=== PATIENT | male | born 1935 | race Caucasian/White ===

== ENCOUNTER 2018-01-05 12:29 | Inpatient (IN) | payer OTHER ==
[~2018-01-05] VITALS: Ht 175.3 cm; Wt 77.1 kg
[~2018-01-05 12:29] MED LIST: Levaquin PO; Norvasc PO; PriLOSEC PO; Tylenol/Codeine #3 PO; Vasotec PO
[2018-01-05 15:32] LABS: BASOPHIL (%) 0.5 % (0-1); EOSINOPHIL (%) 0.6 % (0-5); EOSINOPHIL COUNT 0.1 K/uL (0-0.3); HEMATOCRIT 26.3 % (38.0-50.0); IMMATURE GRANULOCYTE (%) 1.4 % (0.0-0.7); LYMPHOCYTE (%) 19.4 % (15-42); LYMPHOCYTE COUNT 1.6 K/uL (1.0-2.8); MCH 31.4 PG (29.0-34.0); MCHC 34.2 G/DL (30.0-36.0); MCV 91.6 FL (86-99); MONOCYTE (%) 10.5 % (3-12); MONOCYTE COUNT 0.8 K/uL (0-0.8); NEUTROPHIL (%) 67.6 % (45-76); NEUTROPHIL COUNT 5.4 K/uL (1.8-6.4); PLATELET COUNT 313 K/uL (156-360); RBC DIS.WIDTH-CV 13.6 % (11.8-14.6); RBC DIS.WIDTH-SD 45.9 % (39-53); RED BLOOD COUNT 2.87 M/uL (4.00-5.50)
[2018-01-05 15:37] LABS: INTER. NORMALIZED RATIO 1.1
[2018-01-05 15:40] LABS: CHLORIDE 101 mEq/L (99-109); POTASSIUM 3.9 mEq/L (3.7-5.4); PTT 27.4 SEC (25-37); SODIUM 129 mEq/L (136-147)
[2018-01-05 15:43] LABS: GLUCOSE 161 mg/dL (70-99); TOTAL PROTEIN 8.1 g/dL (6.4-8.3)
[2018-01-05 15:45] LABS: TOTAL BILIRUBIN 0.2 mg/dL (0.0-1.0)
[2018-01-05 15:46] LABS: ALKALINE PHOSPHATASE 110 IU/L (3-129); CREATININE 6.8 mg/dL (0.6-1.3); GFR ESTIMATE (CALCULATED) 8 mL/min/ (58.99-99999)
[2018-01-05 15:47] LABS: UREA NITROGEN (BUN) 90 mg/dL (9-23)
[2018-01-05 15:48] LABS: AST (GOT) 24 IU/L (2-34)
[2018-01-05 15:49] LABS: ALT (GPT) 21 IU/L (3-49)
[2018-01-05 15:52] LABS: TROP-I INTERPRETATION NEGATIVE; TROPONIN-I < 0.01 ng/mL (0.0-0.30)
[2018-01-05 16:30] LABS: APPEARANCE TURBID ((CLEAR)); BILIRUBIN NEGATIVE; BLOOD MODERATE; COLOR YELLOW ((YELLOW)); GLUCOSE (STRIP) NEGATIVE; KETONES NEGATIVE; LEUKOCYTES LARGE; NITRITE NEGATIVE; PROTEIN (STRIP) 100; SPECIFIC GRAVITY 1.011 (1.000-1.030); UROBILINOGEN 0.2 MG/DL (0.2-1.0)
[2018-01-05] MEDS ORDERED: AMLODIPINE BES2.5 MG PO (16:51)
[2018-01-05] MEDS ORDERED: OMEPRAZOLE20 MG PO (16:51)
[2018-01-05 17:04] LABS: BACTERIA 3+ /HPF; EPITHELIAL CELLS 1+ /HPF; RED BLOOD CELLS NONE SEEN /HPF (0-5); UCUL ADDED? YES; WHITE BLOOD CELLS TNTC /HPF (0-5)
[2018-01-05 20:00] LABS: COMMENTS - BLOOD GASES C+; DEVICE RA; PCO2 22 mm Hg (35-45); PO2 86 mm Hg (80-100); SITE RR; pH 7.31 (7.35-7.45)
[2018-01-05 20:01] LABS: BASE EXCESS -13.6 mEq/L (-3 to +3); BICARBONATE 11.1 mEq/L (22-26); METHEMOGLOBIN 0.5 % (0-1.5); O2 SATURATION (CALCULATED) 98.1 % (95-99)
[2018-01-05 20:16] LABS: URIC ACID 9.7 mg/dL (3.1-9.2)
[2018-01-05 20:17] LABS: CREATINE KINASE 42 IU/L (1-294)
[2018-01-05 22:08] VITALS: BP 123/62
[2018-01-05 22:38] LABS: C-REACTIVE PROTEIN 95.8 MG/L (0-10); IRON 18 MCG/DL (35-150); TRANSFERRIN (TIBC) 135.3 mg/dL (215-380); TRANSFERRIN SATUR. 13 % (20-55)
[2018-01-05 22:49] LABS: THYROTROPIN (TSH) 2.6 MIU/L (0.4-5.5)
[2018-01-05 22:55] LABS: FERRITIN 677 NG/ML (22-322)
[2018-01-06 00:05] VITALS: BP 120/65
[2018-01-06 00:27] LABS: CHLORIDE 103 mEq/L (99-109); POTASSIUM 3.9 mEq/L (3.7-5.4); SODIUM 130 mEq/L (136-147)
[2018-01-06 00:28] LABS: GLUCOSE 168 mg/dL (70-99)
[2018-01-06 00:32] LABS: CREATININE 6.5 mg/dL (0.6-1.3); GFR ESTIMATE (CALCULATED) 9 mL/min/ (58.99-99999)
[2018-01-06 00:33] LABS: UREA NITROGEN (BUN) 89 mg/dL (9-23)
[2018-01-06 03:33] VITALS: BP 107/62
[2018-01-06 06:01] LABS: HEMATOCRIT 23.3 % (38.0-50.0); HEMOGLOBIN 7.6 G/DL (12.5-16.6); MCH 29.9 PG (29.0-34.0); MCHC 32.6 G/DL (30.0-36.0); MCV 91.7 FL (86-99); PLATELET COUNT 300 K/uL (156-360); RBC DIS.WIDTH-CV 13.6 % (11.8-14.6); RBC DIS.WIDTH-SD 46.1 % (39-53); RED BLOOD COUNT 2.54 M/uL (4.00-5.50); WHITE BLOOD COUNT 7.9 K/uL (4.1-10.2)
[2018-01-06 06:46] LABS: ALBUMIN 2.5 G/DL (3.2-4.8); CHLORIDE 99 MEQ/L (99-109); CREATININE 6.4 MG/DL (0.6-1.3); GFR ESTIMATE (CALCULATED) 9 mL/min/ (58.99-99999); GLUCOSE 166 mg/dL (70-99); PHOSPHORUS 5.1 mg/dL (2.5-4.9); POTASSIUM 3.8 MEQ/L (3.7-5.4); SODIUM 129 MEQ/L (136-147); UREA NITROGEN (BUN) 84 mg/dL (9-23)
[2018-01-06 07:05] VITALS: BP 110/56
[2018-01-06 15:10] VITALS: BP 147/70
[2018-01-06 16:29] LABS: CHLORIDE 97 mEq/L (99-109); POTASSIUM 3.8 mEq/L (3.7-5.4); SODIUM 128 mEq/L (136-147)
[2018-01-06 16:31] LABS: GLUCOSE 157 mg/dL (70-99)
[2018-01-06 16:35] LABS: CREATININE 6.3 mg/dL (0.6-1.3); GFR ESTIMATE (CALCULATED) 9 mL/min/ (58.99-99999)
[2018-01-06 16:36] LABS: UREA NITROGEN (BUN) 85 mg/dL (9-23)
[2018-01-07 00:15] VITALS: BP 133/65
[2018-01-07 06:50] LABS: BASOPHIL (%) 0.5 % (0-1); EOSINOPHIL (%) 0.6 % (0-5); HEMATOCRIT 23.3 % (38.0-50.0); HEMOGLOBIN 7.9 G/DL (12.5-16.6); IMMATURE GRANULOCYTE (%) 1.2 % (0.0-0.7); LYMPHOCYTE (%) 16.7 % (15-42); LYMPHOCYTE COUNT 1.1 K/uL (1.0-2.8); MCHC 33.9 G/DL (30.0-36.0); MCV 88.6 FL (86-99); MONOCYTE (%) 8.9 % (3-12); MONOCYTE COUNT 0.6 K/uL (0-0.8); NEUTROPHIL (%) 72.1 % (45-76); NEUTROPHIL COUNT 4.7 K/uL (1.8-6.4); PLATELET COUNT 310 K/uL (156-360); RBC DIS.WIDTH-CV 13.3 % (11.8-14.6); RBC DIS.WIDTH-SD 43.2 % (39-53); RED BLOOD COUNT 2.63 M/uL (4.00-5.50); WHITE BLOOD COUNT 6.5 K/uL (4.1-10.2)
[2018-01-07 07:29] LABS: CHLORIDE 94 MEQ/L (99-109); GFR ESTIMATE (CALCULATED) 10 mL/min/ (58.99-99999); GLUCOSE 137 mg/dL (70-99); POTASSIUM 3.3 MEQ/L (3.7-5.4); SODIUM 130 MEQ/L (136-147); UREA NITROGEN (BUN) 80 mg/dL (9-23)
[2018-01-07 07:47] VITALS: BP 120/61
[2018-01-07 15:47] VITALS: BP 127/60
[2018-01-07 19:39] VITALS: BP 123/61
[2018-01-07 23:56] VITALS: BP 113/59
[2018-01-08 03:39] VITALS: BP 132/61
[2018-01-08 06:09] LABS: BASOPHIL (%) 0.4 % (0-1); EOSINOPHIL (%) 3.8 % (0-5); EOSINOPHIL COUNT 0.3 K/uL (0-0.3); HEMATOCRIT 23.8 % (38.0-50.0); IMMATURE GRANULOCYTE (%) 1.1 % (0.0-0.7); LYMPHOCYTE (%) 11.6 % (15-42); LYMPHOCYTE COUNT 0.9 K/uL (1.0-2.8); MCH 30.3 PG (29.0-34.0); MCHC 33.6 G/DL (30.0-36.0); MCV 90.2 FL (86-99); MONOCYTE (%) 6.9 % (3-12); MONOCYTE COUNT 0.5 K/uL (0-0.8); NEUTROPHIL (%) 76.2 % (45-76); NEUTROPHIL COUNT 5.6 K/uL (1.8-6.4); PLATELET COUNT 355 K/uL (156-360); RBC DIS.WIDTH-CV 13.4 % (11.8-14.6); RBC DIS.WIDTH-SD 44.4 % (39-53); RED BLOOD COUNT 2.64 M/uL (4.00-5.50); WHITE BLOOD COUNT 7.4 K/uL (4.1-10.2)
[2018-01-08 06:27] LABS: CHLORIDE 97 MEQ/L (99-109); CREATININE 5.4 MG/DL (0.6-1.3); GFR ESTIMATE (CALCULATED) 11 mL/min/ (58.99-99999); GLUCOSE 109 mg/dL (70-99); MAGNESIUM 1.3 mg/dl (1.3-2.7); PHOSPHORUS 4.4 mg/dL (2.5-4.9); SODIUM 132 MEQ/L (136-147); UREA NITROGEN (BUN) 73 mg/dL (9-23)
[2018-01-08 06:36] LABS: POTASSIUM 4.1 MEQ/L (3.7-5.4)
[2018-01-08 07:32] VITALS: BP 120/64
[2018-01-08 16:00] VITALS: BP 128/71
[2018-01-08 23:46] VITALS: BP 105/52
[2018-01-09 06:06] LABS: BASOPHIL (%) 0.4 % (0-1); EOSINOPHIL (%) 1.4 % (0-5); EOSINOPHIL COUNT 0.1 K/uL (0-0.3); HEMATOCRIT 22.5 % (38.0-50.0); HEMOGLOBIN 7.4 G/DL (12.5-16.6); IMMATURE GRANULOCYTE (%) 0.9 % (0.0-0.7); LYMPHOCYTE (%) 11.9 % (15-42); MCH 29.8 PG (29.0-34.0); MCHC 32.9 G/DL (30.0-36.0); MCV 90.7 FL (86-99); MONOCYTE (%) 5.8 % (3-12); MONOCYTE COUNT 0.5 K/uL (0-0.8); NEUTROPHIL (%) 79.6 % (45-76); NEUTROPHIL COUNT 6.4 K/uL (1.8-6.4); PLATELET COUNT 328 K/uL (156-360); RBC DIS.WIDTH-CV 13.4 % (11.8-14.6); RBC DIS.WIDTH-SD 44.5 % (39-53); RED BLOOD COUNT 2.48 M/uL (4.00-5.50)
[2018-01-09 06:38] LABS: CHLORIDE 101 MEQ/L (99-109); CREATININE 5.2 MG/DL (0.6-1.3); GFR ESTIMATE (CALCULATED) 11 mL/min/ (58.99-99999); GLUCOSE 102 mg/dL (70-99); POTASSIUM 3.9 MEQ/L (3.7-5.4); SODIUM 130 MEQ/L (136-147); UREA NITROGEN (BUN) 67 mg/dL (9-23)
[2018-01-09 07:51] VITALS: BP 114/64
[2018-01-09 16:16] VITALS: BP 125/66
[2018-01-10] VITALS (8 sets, daily range): BP systolic 110–136; BP diastolic 55–69
[2018-01-10 06:02] LABS: BASOPHIL (%) 0.3 % (0-1); EOSINOPHIL (%) 2.9 % (0-5); EOSINOPHIL COUNT 0.2 K/uL (0-0.3); HEMATOCRIT 21.1 % (38.0-50.0); IMMATURE GRANULOCYTE (%) 0.9 % (0.0-0.7); LYMPHOCYTE (%) 15.2 % (15-42); MCHC 32.7 G/DL (30.0-36.0); MCV 91.7 FL (86-99); MONOCYTE (%) 8.2 % (3-12); MONOCYTE COUNT 0.5 K/uL (0-0.8); NEUTROPHIL (%) 72.5 % (45-76); NEUTROPHIL COUNT 4.8 K/uL (1.8-6.4); PLATELET COUNT 302 K/uL (156-360); RBC DIS.WIDTH-CV 13.7 % (11.8-14.6); RBC DIS.WIDTH-SD 45.5 % (39-53); WHITE BLOOD COUNT 6.6 K/uL (4.1-10.2)
[2018-01-10 06:06] LABS: HEMOGLOBIN 6.9 G/DL (12.5-16.6)
[2018-01-10 06:23] LABS: CHLORIDE 105 MEQ/L (99-109); GFR ESTIMATE (CALCULATED) 15 mL/min/ (58.99-99999); GLUCOSE 113 mg/dL (70-99); POTASSIUM 3.8 MEQ/L (3.7-5.4); SODIUM 133 MEQ/L (136-147); UREA NITROGEN (BUN) 54 mg/dL (9-23)
[2018-01-10 06:24] LABS: CREATININE 4.1 MG/DL (0.6-1.3)
[2018-01-10 08:15] LABS: ABSOLUTE RETICULOCYTE CT. 0.05 M/uL (0.02-0.08); IMM.RETIC FRACTION 9.9 % (3-19); RETIC HGB EQUIVALENT 30.1 (28-36); RETICULOCYTE COUNT 2.1 % (0.5-1.8)
[2018-01-11 05:56] LABS: BASOPHIL (%) 0.5 % (0-1); EOSINOPHIL COUNT 0.5 K/uL (0-0.3); HEMOGLOBIN 8.2 G/DL (12.5-16.6); IMMATURE GRANULOCYTE (%) 1.4 % (0.0-0.7); LYMPHOCYTE (%) 23.4 % (15-42); LYMPHOCYTE COUNT 1.5 K/uL (1.0-2.8); MCHC 32.8 G/DL (30.0-36.0); MCV 91.6 FL (86-99); MONOCYTE (%) 11.7 % (3-12); MONOCYTE COUNT 0.7 K/uL (0-0.8); NEUTROPHIL COUNT 3.4 K/uL (1.8-6.4); PLATELET COUNT 336 K/uL (156-360); RBC DIS.WIDTH-CV 13.8 % (11.8-14.6); RBC DIS.WIDTH-SD 46.9 % (39-53); RED BLOOD COUNT 2.73 M/uL (4.00-5.50); WHITE BLOOD COUNT 6.2 K/uL (4.1-10.2)
[2018-01-11 06:18] LABS: CHLORIDE 106 MEQ/L (99-109); CREATININE 3.7 MG/DL (0.6-1.3); GFR ESTIMATE (CALCULATED) 17 mL/min/ (58.99-99999); GLUCOSE 96 mg/dL (70-99); POTASSIUM 3.6 MEQ/L (3.7-5.4); SODIUM 135 MEQ/L (136-147); UREA NITROGEN (BUN) 50 mg/dL (9-23)
[2018-01-11 07:32] VITALS: BP 129/63
[2018-01-11] MEDS ORDERED: CYANOCOBALAM1000 MCG PO (09:26)
[2018-01-11] MEDS ORDERED: FERROUS SULFAT325 MG PO (09:26)
[2018-01-11] MEDS ORDERED: CEFTRIAXONE2 G1 IV (09:27)
== END 2018-01-11 12:27 | disposition home or self-care (01) | DRG 683 ==
LOC: EME 12:29 → 5SOUTH 20:23 → ENRESERV 20:23 → EDOF 20:23 → ENRESERV 20:38 → 5SOUTH 21:41
PROVIDERS: Emergency Medicine; Hospitalist; Internal Medicine; Internal Medicine Nephrology
PROC: 30233N1 Transfusion of Nonautologous Red Blood Cells into Peripheral Vein, Percutaneous Approach (ICD-10-PCS; principal; 2018-01-05)
DX: N17.0 Acute kidney failure with tubular necrosis (principal); R78.81 Bacteremia; E87.1 Hypo-osmolality and hyponatremia; E11.22 Type 2 diabetes mellitus with diabetic chronic kidney disease; E87.2 Acidosis; K80.20 Calculus of gallbladder without cholecystitis without obstruction; N13.6 Pyonephrosis; B96.1 Klebsiella pneumoniae [K. pneumoniae] as the cause of diseases classified elsewhere; I12.9 Hypertensive chronic kidney disease with stage 1 through stage 4 chronic kidney disease, or unspecified chronic kidney disease; D63.8 Anemia in other chronic diseases classified elsewhere; D50.9 Iron deficiency anemia, unspecified; B35.6 Tinea cruris; R53.1 Weakness; G89.29 Other chronic pain; E78.5 Hyperlipidemia, unspecified; K21.9 Gastro-esophageal reflux disease without esophagitis; Z96.0 Presence of urogenital implants; E11.9 Type 2 diabetes mellitus without complications; R29.6 Repeated falls; N18.3 Chronic kidney disease, stage 3 (moderate); E87.6 Hypokalemia; F17.200 Nicotine dependence, unspecified, uncomplicated; H91.90 Unspecified hearing loss, unspecified ear; R32 Unspecified urinary incontinence; Z90.79 Acquired absence of other genital organ(s); Z85.46 Personal history of malignant neoplasm of prostate; Z92.3 Personal history of irradiation; Z79.4 Long term (current) use of insulin; Z87.442 Personal history of urinary calculi; Z86.14 Personal history of Methicillin resistant Staphylococcus aureus infection
CPT/HCPCS: 36600; 71045; 74176; 80048; 80048 91; 80053; 80069; 81003; 82436; 82550; 82550 91; 82607; 82728; 82948; 83540; 83605; 83735; 84100; 84133; 84153; 84300; 84443; 84466; 84484; 84550; 85014; 85018; 85025; 85027; 85046; 85610; 85651; 85730; 86140; 86335; 86850; 86900; 86901; 86920; 87040; 87077; 87086; 87186; 87801; 89190; 93005; 99281; 99284; J0696; J1644; J2020; J3420; J7030; J7040; J7070; P9016